=== PATIENT | male | born 1940 | race Caucasian/White ===

== ENCOUNTER 2017-12-22 06:55 | Inpatient (IN) | payer MEDICARE, SELFPAY ==
[2017-12-08 13:43] VITALS: BMI 34.8
[2017-12-22] VITALS (14 sets, daily range): BP systolic 105–144; BP diastolic 54–81; PULSE 69–104; RESP 14–17; TEMP 36.2–37.7; O2SAT 88–98; BMI 34.8
[2017-12-22] MEDS: LACTATED RINGERS 1,000 ML 42 ML IV ×3 (07:28→12:00)
--- NOTE | 2017-12-22 08:00 | DI.RAD.S_ITS ---
PROCEDURE: XR LUMBAR SPINE 2-3V INDICATIONS: L3-4, L4-5 L5-S1 TLIF TECHNIQUE: 3 views of the lumbar spine were acquired. [facility] 3 [facility], 09/10/2017, 9:39. FINDINGS: Bones: Intraoperative imaging of discectomy and posterior fusion at L3-4, L4-5 and L5-S1, disc spacers at those levels with bilateral transpedicular screws and vertical connecting rods. Soft tissues: Overlying bowel gas pattern is normal. No suspicious soft tissue calcifications. IMPRESSION: Intraoperative documentation of discectomy and fusion at 3 levels, L3-4 through L5-S1 Dictated by: Harry Salmon M.D. on 12/22/2017 at 13:16 Approved by: Harry Salmon M.D. on 12/22/2017 at 13:19
[2017-12-22] MEDS: CEFAZOLIN 2 GM/100 ML FROZ.PIGGY IV ×2 (08:02→17:12)
--- NOTE | 2017-12-22 09:24 | SUR.OPER ---
Prone on spine table, head in foam head support, padded chest and pelvic supports, gel pad at knees, lower legs supported by pillows; nipples, genitalia and toes free of pressure, arms secured on foam padded arm boards at <90 degrees abduction. Tape over blanket at thigh secured to table.
[2017-12-22] MEDS: BUPIVACAINE LIPOSOME 266 MG/20 ML VIAL SUBCUT (09:35)
[2017-12-22] MEDS: BUPIVACAINE 0.25% W/ EPI 50 ML VIAL INJ (09:35)
--- NOTE | 2017-12-22 12:50 | PM.OP.1 ---
Operative Date/Time/Diagnoses - Date of procedure: 12/22/17 Time of procedure: 08:34 Pre-op diagnosis: 1. L3-4, L4-5, L5-S1 spinal stenosis 2. L5-S1 spondylolisthesis 3. L3-4, L4-5, L5-S1 spondylosis with radiculopathy Post-op diagnosis: same Procedure & Clinicians Procedure: 1. L3-4, L4-5, L5-S1 Postero-lateral and posterior interbody fusion 2. L3-4, L4-5, L5-S1 interbody cage placement. 3. L3-4, L4-5, L5-S1 decompressive laminectomy with bilateral facetecomies 4. L3-4, L4-5, L5-S1 Posterior segmental instrumentation 5. Peterson of bone marrow from iliac crest 6. Utilization of microsurgical technique and operating microscope l Same procedure as scheduled: Yes Indications: Patient has been having chronic back pain and worsening lumbar radiculopathy. Patient failed multiple conservative management with worsening pain weakness and numbness in her lower extremity. Patient has been having difficulty performing activity of daily living. After discussing risks benefits of treatment options, patient elected proceed with surgery. Surgeon: Jas Feliciano Tourist Guide: Erika Tan Click Yes if Unassisted: No Anesthesia Type: General Operative Notes Closure Type: primary Specimen(s): none sent Applied: catheter Estimated Blood Loss (mL): 200 Blood products transfused: none Procedure in detail: Patient was seen in the preoperative area. Risks and benefits of the surgery was discussed with the patient. Informed consent was obtained from the patient and placed in the chart. Surgical site was marked. Patient was taken to the operative room. General anesthesia was administered. Prophylactic antibiotic was given to the patient less than 30 min before the incision was made. Patient was placed into a prone position on the Connor table. Patient's back was then prepped and draped in the sterile fashion. Time-out was performed at this time. Using AP and lateral C-arm imaging the interval between L3-S1 was identified and marked on patient's back. A 3 inch incision 2 in from midline was made on the left side first. The fascia was incised in line with skin incision. Globus MARS retractors was placed inside the incision and docked onto the L3, L4 and L5 lamina. Using microsurgical technique and operating microscope, a L3, L4 and L5 laminectomy and L3-4, L4-5 L5-S1 facetectomy was performed using a Kerrison rongeur. The disc space at L3-4, L4-5, L5-S1 was identified. And a total diskectomy was performed at L3-4, L4-5, L5-S1 level. The endplates were decorticated using a rasp and shaver. The total diskectomy and decortication was performed at L3-4, L4-5, L5-S1 level in order to to accomplish a L3-4, L4-5, L5-S1 fusion. The local bone from the laminectomy and facetectomy was saved for local bone grafting. After the total diskectomy and decortication was completed, Globus viacell bone graft material was combined with local bone that was harvested earlier. At this time, a separate skin is incision was made over the iliac crest. A Jamshidi needle was inserted into the iliac crest through a separate skin incision. 5 cc of bone marrow aspiration was obtained through the separate skin incision using a Jamshidi needle from the iliac crest. The bone marrow aspiration was combined with local bone and the via cell bone grafting material. The bone grafting material was placed into the L3-4, L4-5, L5-S1 interbody space along with three cages, one expandable cage at each level. The cages were expanded to their maximum height using the torque limiting screwdriver. At this time a mirror image incision was made on the right side. The fascia was incised in line with the skin incision. Globus MARS retractor was inserted and docked onto the L3-4, L4-5, L5-S1 posterolateral gutter. Using the power drill, posterior-lateral decortication was performed at L3-4, L4-5, L5-S1 level until bleeding cortical bone was identified. The remaining bone grafting material was placed into the L3-4, L4-5 L5-S1 posterior lateral gutter he order to accomplish posterolateral fusion at the L3-4, L4-5 L5-S1 levels. Using the double C-arm technique, pedicle screws were placed into the L3, L4, L5, S1 pedicles bilaterally. This was done by placing the Jamshidi needle into the pedicles, then placing the guidewires over the Jamshidi needle, and finally placing the cannulated screws over the guidewires bilaterally. After the pedicle screws were placed, 2 titanium rods was locked into the heads of the pedicle screws using locking caps and torque limiting screwdriver. Total 8 pedicles screws were placed. After all the hardware was placed, and confirmed with AP and lateral C-arm imaging, the wound was then irrigated with sterile normal saline and packed with Ray-Emily gauze for 3 min to accomplish hemostasis. After the gauze was removed the deep fascia was closed with #1 Vicryl suture. The subcutaneous layer was closed with 2-0 Vicryl. The skin was closed with skin rebeca. Patient tolerated the procedure well. There were no complications. Complications: none Condition: stable Disposition: PACU Plan for aftercare: Admit to inpatient hospital
--- NOTE | 2017-12-22 12:59 | P.OP_ITS ---
Operative Date/Time/Diagnoses - Date of procedure: 12/22/17 Time of procedure: 08:34 Pre-op diagnosis: 1. L3-4, L4-5, L5-S1 spinal stenosis 2. L5-S1 spondylolisthesis 3. L3-4, L4-5, L5-S1 spondylosis with radiculopathy Post-op diagnosis: same Procedure & Clinicians Procedure: 1. L3-4, L4-5, L5-S1 Postero-lateral and posterior interbody fusion 2. L3-4, L4-5, L5-S1 interbody cage placement. 3. L3-4, L4-5, L5-S1 decompressive laminectomy with bilateral facetecomies 4. L3-4, L4-5, L5-S1 Posterior segmental instrumentation 5. Prompton of bone marrow from iliac crest 6. Utilization of microsurgical technique and operating microscope l Same procedure as scheduled: Yes Indications: Patient has been having chronic back pain and worsening lumbar radiculopathy. Patient failed multiple conservative management with worsening pain weakness and numbness in her lower extremity. Patient has been having difficulty performing activity of daily living. After discussing risks benefits of treatment options, patient elected proceed with surgery. Surgeon: Jas Feliciano Title Supervisor: Erika Tan Click Yes if Unassisted: No Anesthesia Type: General Operative Notes Closure Type: primary Specimen(s): none sent Applied: catheter Estimated Blood Loss (mL): 200 Blood products transfused: none Procedure in detail: Patient was seen in the preoperative area. Risks and benefits of the surgery was discussed with the patient. Informed consent was obtained from the patient and placed in the chart. Surgical site was marked. Patient was taken to the operative room. General anesthesia was administered. Prophylactic antibiotic was given to the patient less than 30 min before the incision was made. Patient was placed into a prone position on the Connor table. Patient's back was then prepped and draped in the sterile fashion. Time- out was performed at this time. Using AP and lateral C-arm imaging the interval between L3-S1 was identified and marked on patient's back. A 3 inch incision 2 in from midline was made on the left side first. The fascia was incised in line with skin incision. Globus MARS retractors was placed inside the incision and docked onto the L3, L4 and L5 lamina. Using microsurgical technique and operating microscope, a L3, L4 and L5 laminectomy and L3-4, L4-5 L5-S1 facetectomy was performed using a Kerrison rongeur. The disc space at L3-4, L4-5, L5-S1 was identified. And a total diskectomy was performed at L3-4, L4-5, L5-S1 level. The endplates were decorticated using a rasp and shaver. The total diskectomy and decortication was performed at L3-4, L4-5, L5-S1 level in order to to accomplish a L3-4, L4-5 , L5-S1 fusion. The local bone from the laminectomy and facetectomy was saved for local bone grafting. After the total diskectomy and decortication was completed, Globus viacell bone graft material was combined with local bone that was harvested earlier. At this time, a separate skin is incision was made over the iliac crest. A Jamshidi needle was inserted into the iliac crest through a separate skin incision. 5 cc of bone marrow aspiration was obtained through the separate skin incision using a Jamshidi needle from the iliac crest. The bone marrow aspiration was combined with local bone and the via cell bone grafting material. The bone grafting material was placed into the L3-4, L4-5, L5-S1 interbody space along with three cages, one expandable cage at each level. The cages were expanded to their maximum height using the torque limiting screwdriver. At this time a mirror image incision was made on the right side. The fascia was incised in line with the skin incision. Globus MARS retractor was inserted and docked onto the L3-4, L4-5, L5-S1 posterolateral gutter. Using the power drill , posterior-lateral decortication was performed at L3-4, L4-5, L5-S1 level until bleeding cortical bone was identified. The remaining bone grafting material was placed into the L3-4, L4-5 L5-S1 posterior lateral gutter he order to accomplish posterolateral fusion at the L3-4, L4-5 L5-S1 levels. Using the double C-arm technique, pedicle screws were placed into the L3, L4, L5 , S1 pedicles bilaterally. This was done by placing the Jamshidi needle into the pedicles, then placing the guidewires over the Jamshidi needle, and finally placing the cannulated screws over the guidewires bilaterally. After the pedicle screws were placed, 2 titanium rods was locked into the heads of the pedicle screws using locking caps and torque limiting screwdriver. Total 8 pedicles screws were placed. After all the hardware was placed, and confirmed with AP and lateral C-arm imaging, the wound was then irrigated with sterile normal saline and packed with Ray-Emily gauze for 3 min to accomplish hemostasis. After the gauze was removed the deep fascia was closed with #1 Vicryl suture. The subcutaneous layer was closed with 2-0 Vicryl. The skin was closed with skin rebeca. Patient tolerated the procedure well. There were no complications. Complications: none Condition: stable Disposition: PACU Plan for aftercare: Admit to inpatient hospital
[2017-12-22] MEDS: fentaNYL 100 MCG/2 ML INJ 50 MCG IV ×4 (13:16→13:47)
[2017-12-22] MEDS: SODIUM CHLORIDE 0.9% 1,000 ML 100 ML IV (14:38)
[2017-12-22] MEDS: HYDROMORPHONE 0.5 MG INJ IV (14:55)
[2017-12-22] MEDS: GABAPENTIN 600 MG TABLET PO ×2 (15:00→20:45)
[2017-12-22] MEDS: OXYCODONE IR 10 MG TABLET PO ×3 (16:18→22:32)
[2017-12-22] MEDS: DOCUSATE 100 MG CAPSULE PO (20:45)
[2017-12-22] MEDS: SENNOSIDES 8.6 MG TABLET 17.2 MG PO (20:47)
[2017-12-22] MEDS: hydrOXYzine pamoate 25 MG CAPSULE PO (20:48)
[2017-12-23] VITALS (7 sets, daily range): BP systolic 116–157; BP diastolic 58–76; PULSE 81–116; RESP 16–22; TEMP 36.4–37.4; O2SAT 93–97
[2017-12-23] MEDS: CEFAZOLIN 2 GM/100 ML FROZ.PIGGY IV (00:27)
[2017-12-23] MEDS: SODIUM CHLORIDE 0.9% 1,000 ML 100 ML IV (00:29)
[2017-12-23] MEDS: HYDROMORPHONE 0.5 MG INJ IV ×4 (00:47→15:38)
[2017-12-23] MEDS: hydrOXYzine pamoate 25 MG CAPSULE PO ×5 (02:42→21:21)
[2017-12-23] MEDS: OXYCODONE IR 10 MG TABLET PO ×7 (02:42→21:20)
[2017-12-23 05:51] LABS: Hematocrit 32.2 % (41-53); Hemoglobin 10.8 g/dL (13.5-17.5)
--- NOTE | 2017-12-23 07:30 | P.PN_ITS ---
Subjective Date Patient Seen: 12/23/17 Time Patient Seen: 07:30 Interval history: Patient is s/p L3-4, L4-5, L5-S1 fusion POD #1. He states that his back is still causing him some pain locally but is better down his legs. He complains of numbness of the left great toe and down his right thigh that was pre-existing prior to surgery. Denies fevers, chills, SOB, CP. Exam Vital Signs (past 8 hours): Vital Signs - 8 hr 3 12/22/17 23:30 12/23/17 03:10 Temperature 98.2 F 97.6 F Pulse Rate 85 81 Respiratory Rate 17 Blood Pressure 120/54 L 139/76 H Pulse Oximetry 95 95 Pulse Oximetry 95 Oxygen Delivery Method Room Air Oxygen Flow Rate 0 Narrative Exam Narrative: Patient is well-developed, well-nourished, in no acute distress. Patient is alert and oriented x3. He has no focal neurological deficits observed and is making urine, but output is low. He is NVI in both lower extremities, has full movement of the ankle and knees. Dressing CDI. Objective Labs Result Diagrams: 12/23/17 05:30 Labs: Laboratory Results - last 24 hr 12/23/17 05:30 Hgb 10.8 L Hct 32.2 L Urine output around 1 mL/hr Assessment & Plan Post-op (1) Lumbar spondylosis: Problem details: Patient will work with physical therapy today. Continue pain control and DVT prophylaxis. Bolus 1 L to help alleviate fluid imbalance. Recheck H&H in the morning. Possible discharge home tomorrow. Current Visit: Yes Status: Acute Postoperative Procedures Operation Date: 12/22/17 07:45 Actual Procedures Side Surgeon p L3-4, L4-5, L5-S1 Translaminar Interbody Fusion with Posterior Instru Jas Feliciano MD Postoperative day: 1 Postoperative status: doing well Postoperative plan: routine post-op care, see orders and advance diet Time Spent With Patient less than 15 minutes Quality VTE Deep Vein Thrombosis/Pulmonary Embolism Present on Admission: No
[2017-12-23] MEDS: SODIUM CHLORIDE 0.9% 500 ML 1000 ML IV (07:53)
[2017-12-23] MEDS: LISINOPRIL 20 MG TABLET 10 MG PO (08:03)
[2017-12-23] MEDS: TAMSULOSIN 0.4 MG CAPSULE PO (08:03)
[2017-12-23] MEDS: GABAPENTIN 600 MG TABLET PO ×3 (08:04→21:22)
[2017-12-23] MEDS: DOCUSATE 100 MG CAPSULE PO ×2 (08:04→21:20)
[2017-12-23] MEDS: PANTOPRAZOLE 20 MG TABLET PO (08:04)
[2017-12-23] MEDS: ACETAMINOPHEN 325 MG TABLET 650 MG PO (09:17)
[2017-12-23] MEDS: ASPIRIN EC 81 MG TABLET PO (10:04)
--- NOTE | 2017-12-23 10:36 | CM.DANOTE ---
Addendum entered by DEANA Melendez 12/23/17 13:26: According to PT/OT; SNF is recommended and pt/spouse agreeable. Went back to pt's rm to review SNF choice options- pt groggy but appreciates SNF choice list and will review w/spouse. Original Note: DCP Assessment: Pt is a 77 yo male, resident of [place]. Pt admitted for spinal surgery w/Dr Feliciano. Pt's PCP is RUY Gonzalez. Insurance is Medicare. Met w/pt and his Eliana, explained SW role. Heena, MARILEE and Audrey PT were beginning their evals in pt's rm. Pt and spouse live in a [id number] suite on the same property as pt's son. Pt has no DPOA assigned at this time although would like his to be his primary contact. Pt expects to return home at [place] w/the assistance from his and outpt f/u. OT Heena mentions briefly SNF as a b/u plan and pt apprehensive about this idea. Pt mostly indp at baseline although pain has limited his activity tolerance and endurance. This TROUBLE LOCATER will plan to f/u w/therapy team later today or tomorrow re initial eval; thoughts/concerns/recommendations etc. DEANA Melendez
--- NOTE | 2017-12-23 11:41 | PC.NURSE ---
Discussed removing peterson catheter with patient, as order remains to dc once urinary output increases and patient ambulating. Patient was unable to ambulate with PT and OT this morning, per PT patient will require lift back to bed from chair. Patient refused removal at this time. will continue to monitor and dc once patient able to ambulate and tolerate removal.
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
--- NOTE | 2017-12-23 15:14 | PT.IPTN ---
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/17) Spinal stenosis, lumbar region with neurogenic claudication (12/22/17) Surgery Performed Operation Date: 12/22/17 07:45 Actual Procedures p L3-4, L4-5, L5-S1 Translaminar Interbody Fusion with Posterior Gilberto Feliciano MD Physical Therapy Treatment Note M2 PT-IP Current Condition Start: 12/23/17 12:03 Freq: NEEDED Status: Active Protocol: Document 12/23/17 12:05 AB (Rec: 12/23/17 12:23 AB [id number]) Physical Therapy Current Condition Current Condition Evaluation Date 12/23/17 Treatment Diagnosis s/p L3-4, L4-5, L5S1 fusion and discectomy Onset Date 12/22/17 Precautions Lumbar Precautions Log Roll No Twisting Limit Bending Lifting Restriction of 10 lbs Gait Belt above Incisional Area M3 PT-IP Subjective Start: 12/23/17 12:03 Freq: NEEDED Status: Active Protocol: Document 12/23/17 15:09 AB (Rec: 12/23/17 15:14 AB [id number]) Subjective Physical Therapy Visit Type Type Treatment Note Visit Start Time 12:30 Visit Stop Time 13:00 Total Visit Minutes 30 Number of TRAIN BRAKE OPERATOR Visits 0 Physical Therapy Visit Comments Patient Comments pt requesting to go back to bed. Therapy Pain Assessment Pain When Pain Assessed At Rest Pain Present Pain Present Pain Reported Location Lower Back Intensity 5 Scale Used Numeric (1 - 10) Pain Management Techniques Re-positioning M4 PT-IP Mobility and Gait Start: 12/23/17 12:03 Freq: NEEDED Status: Active Protocol: Document 12/23/17 15:09 AB (Rec: 12/23/17 15:14 AB [id number]) PT-Bed Mobility Assessment Sit to Supine Sit to Supine Maximum Assistance 2 Person Assistance PT-Transfer Assessment Sit to and From Stand Sit to and from Stand Maximum Assistance 2 Person Assistance Use of Upper Extremities Equipment Transfer Assistive Device Gait Belt Front Wheeled Walker Orthotic/Prosthetic Devices or Brace: No Transfers Transfer Destination Bed Transfer Technique Stand Step Pivot Transfer Ability Level of Assist Maximum Assistance 2 Person Assistance Use of Upper Extremities Comments Mobility Comments pt completed sit <> stand with 2 attempts requiring max A x 2-3. pt completed transfer to bed using FWW max A x 2 and max cues. pt required max A to stabilize L knee and for balance. M5 PT-IP Objective Assessments Start: 12/23/17 12:03 Freq: NEEDED Status: Active Protocol: Document 12/23/17 12:05 AB (Rec: 12/23/17 12:23 AB [id number]) Orientation Orientation/Cognition Level of Alertness Alert Orientation Name Place Situation Safety Awareness Understands Safety Issues Strength Lower Extremity Strength Assessment Bilaterally Impaired Comments Strength Comments LLE: 3-/5 RLE 3+/5 M6 PT-IP Treatment Start: 12/23/17 12:03 Freq: NEEDED Status: Active Protocol: Document 12/23/17 12:05 AB (Rec: 12/23/17 12:23 AB [id number]) Physical Therapy Treatment Exercises Exercises Ankle Pumps Gluteal Sets Quad Sets Education Education Provided Precautions Weight Bearing Status Post-Op Packet Safety M7 PT-IP Assessment and Plan Start: 12/23/17 12:03 Freq: NEEDED Status: Active Protocol: Document 12/23/17 15:09 AB (Rec: 12/23/17 15:14 AB [id number]) PT Summary Assessment and Plan Potential Rehabilitation Potential Fair Summary Impairments Pain ROM Strength Balance Coordination Bed Mobility Transfers Gait Activity Tolerance Progress Towards Goals Slow Progress due to Medical Issues Slow Progress due to Activity Tolerance Assessment Summary pt continues to require 2 -3 person extensive assist with mobility and unable to ambulate at this time. Pt will need SNF rehab to improve function prior to d/c home. Goals Bed Mobility Goal Minimal Assistance Transfer Goal Minimal Assistance Gait Goal Minimal Assistance Gait Distance 100 Other Goals up/down 1 step using FWW Frequency of Treatment Frequency Of Treatment Twice a Day Treatment Plan Physical Therapy Treatment Plan Bed Mobility Training Transfer Training Gait Training Therapeutic Exercise Balance Retraining Post Op Education Discharge Planning Hot or Cold Pack Neuromuscular Re-ed Coordination Retraining Manual Therapy Other Recommendations and Next Treatment sit<> stand; bed mobility, Focus transfers Recommendations To Nursing Amount of Assist Needed 3 or More Person Assist Mechanical Lift Discharge Recommendations PT Discharge Recommendations SNF Rehab Equipment Needed for Home Before FWW Discharge
[2017-12-23] MEDS: SENNOSIDES 8.6 MG TABLET 17.2 MG PO (21:20)
[2017-12-23] MEDS: SODIUM CHLORIDE 0.9% FLUSH 10 ML IV (21:22)
[2017-12-24] VITALS (10 sets, daily range): BP systolic 112–143; BP diastolic 60–80; PULSE 78–105; RESP 16–18; TEMP 36.3–36.7; O2SAT 86–98
[2017-12-24] MEDS: HYDROMORPHONE 0.5 MG INJ IV ×2 (00:20→06:10)
[2017-12-24] MEDS: OXYCODONE IR 5 MG TABLET 15 MG PO ×3 (01:55→19:19)
--- NOTE | 2017-12-24 02:21 | PC.NURSE ---
Addendum entered by Tristan Berry R.N. 12/24/17 02:33: 0155: Pt states his pain is still 5/10. Medicated for pain with Oxycodone 15mg po. Original Note: Slate Cutter Note: 0020: Pt having labored breathing and O2 sat of 86% on room air. RR 28. Pt states he has 8/10 pain. HR 116. Placed on O2 2L/NC. Medicated with Dilaudid 0.5mg IV. 0025: Dr. Feliciano notified by phone of the above. New orders are to increase Oxycodone dose, add Valium as muscle relaxer, keep pt on O2 for now and monitor sats Q1hr through the night. 0030: Pt states he is starting to feel better, and pain is decreased to 5/10.
[2017-12-24] MEDS: hydrOXYzine pamoate 25 MG CAPSULE PO ×2 (04:57→16:17)
--- NOTE | 2017-12-24 08:11 | PM.PNPO.1 ---
Subjective Date Patient Seen: 12/24/17 Time Patient Seen: 08:11 Interval history: POD #2 status post L3-S1 fusion with Dr. Feliciano. Had difficulty with pain control yesterday afternoon through this morning. He is taking oxycodone 15 mg, and Tylenol for pain control. Still has a Peck in place as he was not very mobile yesterday and only made it to his chair in his room. Exam Vital Signs (past 8 hours): Vital Signs - 8 hr 12/24/17 00:20 12/24/17 00:25 12/24/17 00:30 Temperature Pulse Rate Respiratory Rate Blood Pressure Pulse Oximetry 86 L 90 L 92 12/24/17 01:30 12/24/17 05:34 Temperature 98.0 F Pulse Rate 78 Respiratory Rate 18 Blood Pressure 132/74 H Pulse Oximetry 98 94 Pulse Oximetry 94 Oxygen Delivery Method Nasal Cannula Oxygen Flow Rate 2 Narrative Exam Narrative: Patient lying in bed in no acute distress. He is alert and oriented x3. Calves are soft, compressible, nontender bilaterally. Sensation intact to light touch throughout bilateral lower extremities. Pulses are symmetrical. He is able to actively dorsiflex and plantar flex. Objective Labs Result Diagrams: 12/23/17 05:30 Assessment & Plan Post-op (1) History of [place] (myocardial infarction): Current Visit: Yes Status: Acute (2) Prostate cancer: Current Visit: Yes Status: Acute (3) S/P lumbar fusion: Current Visit: Yes Status: Acute Postoperative Procedures Operation Date: 12/22/17 07:45 Actual Procedures Side Surgeon p L3-4, L4-5, L5-S1 Translaminar Interbody Fusion with Posterior Instru Jas Feliciano MD POD #2 status post L3-S1 fusion with Dr[address] Feliciano. Will start course of 24 hr burst of steroids; 10 mg dexamethasone now, then 4 mg every 6 hr for 24 hr. Patient will continue to mobilize with physical therapy. No excessive bending, lifting, or twisting. Peck will remain in place until patient is more active, as he has a history of prostate cancer. Patient is slow to recover, and having difficulty with pain control. Possible SNF versus home in next 1-2 days. Time Spent With Patient less than 15 minutes Quality VTE Deep Vein Thrombosis/Pulmonary Embolism Present on Admission: No
--- NOTE | 2017-12-24 08:14 | P.PN_ITS ---
Subjective Date Patient Seen: 12/24/17 Time Patient Seen: 08:11 Interval history: POD #2 status post L3-S1 fusion with Dr. Feliciano. Had difficulty with pain control yesterday afternoon through this morning. He is taking oxycodone 15 mg, and Tylenol for pain control. Still has a Peck in place as he was not very mobile yesterday and only made it to his chair in his room. Exam Vital Signs (past 8 hours): Vital Signs - 8 hr 3 12/24/17 00:20 12/24/17 00:25 12/24/17 00:30 Temperature Pulse Rate Respiratory Rate Blood Pressure Pulse Oximetry 86 L 90 L 92 3 12/24/17 01:30 12/24/17 05:34 Temperature 98.0 F Pulse Rate 78 Respiratory Rate 18 Blood Pressure 132/74 H Pulse Oximetry 98 94 Pulse Oximetry 94 Oxygen Delivery Method Nasal Cannula Oxygen Flow Rate 2 Narrative Exam Narrative: Patient lying in bed in no acute distress. He is alert and oriented x3. Calves are soft, compressible, nontender bilaterally. Sensation intact to light touch throughout bilateral lower extremities. Pulses are symmetrical. He is able to actively dorsiflex and plantar flex. Objective Labs Result Diagrams: 12/23/17 05:30 Assessment & Plan Post-op (1) History of [place] (myocardial infarction): Current Visit: Yes Status: Acute (2) Prostate cancer: Current Visit: Yes Status: Acute (3) S/P lumbar fusion: Current Visit: Yes Status: Acute Postoperative Procedures Operation Date: 12/22/17 07:45 Actual Procedures Side Surgeon p L3-4, L4-5, L5-S1 Translaminar Interbody Fusion with Posterior Instru Jas Feliciano MD POD #2 status post L3-S1 fusion [address] Feliciano. Will start course of 24 hr burst of steroids; 10 mg dexamethasone now, then 4 mg every 6 hr for 24 hr. Patient will continue to mobilize with physical therapy. No excessive bending, lifting , or twisting. Peck will remain in place until patient is more active, as he has a history of prostate cancer. Patient is slow to recover, and having difficulty with pain control. Possible SNF versus home in next 1-2 days. Time Spent With Patient less than 15 minutes Quality VTE Deep Vein Thrombosis/Pulmonary Embolism Present on Admission: No
[2017-12-24] MEDS: GABAPENTIN 600 MG TABLET PO ×3 (08:33→20:37)
[2017-12-24] MEDS: ASPIRIN EC 81 MG TABLET PO (08:33)
[2017-12-24] MEDS: DOCUSATE 100 MG CAPSULE PO ×2 (08:33→20:37)
[2017-12-24] MEDS: ACETAMINOPHEN 325 MG TABLET 650 MG PO ×2 (08:33→20:43)
[2017-12-24] MEDS: TAMSULOSIN 0.4 MG CAPSULE PO (08:33)
[2017-12-24] MEDS: SODIUM CHLORIDE 0.9% FLUSH 10 ML IV ×3 (08:34→20:37)
[2017-12-24] MEDS: DEXAMETHASONE 4 MG TABLET 10 MG PO (08:34)
[2017-12-24] MEDS: LISINOPRIL 10 MG TABLET PO (08:34)
[2017-12-24] MEDS: PANTOPRAZOLE 20 MG TABLET PO (08:34)
[2017-12-24] MEDS: OXYCODONE IR 10 MG TABLET PO ×3 (10:23→16:16)
--- NOTE | 2017-12-24 10:59 | CM.DPC ---
DCP Cont: Spoke w/spouse Eliana this morning; reviewed Medicare SNF list; Pt fairly groggy this morning. Eliana expects to visit [facility] today and will keep this CUP MACHINE OPERATOR posted re SNF choice. DALLIN
--- NOTE | 2017-12-24 12:06 | PT.IPTN ---
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/17) Spinal stenosis, lumbar region with neurogenic claudication (12/22/17) Arthrodesis status (12/22/17) Surgery Performed Operation Date: 12/22/17 07:45 Actual Procedures p L3-4, L4-5, L5-S1 Translaminar Interbody Fusion with Posterior Gilberto Feliciano MD Physical Therapy Treatment Note M2 PT-IP Current Condition Start: 12/23/17 12:03 Freq: NEEDED Status: Active Protocol: Document 12/23/17 12:05 AB (Rec: 12/23/17 12:23 AB [id number]) Physical Therapy Current Condition Current Condition Evaluation Date 12/23/17 Treatment Diagnosis s/p L3-4, L4-5, L5S1 fusion and discectomy Onset Date 12/22/17 Precautions Lumbar Precautions Log Roll No Twisting Limit Bending Lifting Restriction of 10 lbs Gait Belt above Incisional Area M3 PT-IP Subjective Start: 12/23/17 12:03 Freq: NEEDED Status: Active Protocol: Document 12/24/17 11:58 AB (Rec: 12/24/17 12:06 AB [email or web address]) Subjective Physical Therapy Visit Type Type Treatment Note Visit Start Time 10:44 Visit Stop Time 11:10 Total Visit Minutes 26 Number of FLIGHT CONTROLS ENGINEER Visits 0 Physical Therapy Visit Comments Patient Comments pt requires motivation to participate and initially refusing PT. Therapy Pain Assessment Pain When Pain Assessed During Mobility Pain Present Pain Present Pain Reported Location Lower Back Intensity 4 Scale Used Numeric (1 - 10) Pain Management Techniques Timing of Activity with Medications M4 PT-IP Mobility and Gait Start: 12/23/17 12:03 Freq: NEEDED Status: Active Protocol: Document 12/24/17 11:58 AB (Rec: 12/24/17 12:06 AB [email or web address]) PT-Bed Mobility Assessment Rolling Type of Rolling Roll to Left Level of Assist Maximal Assistance Supine to Sit Supine to Sit Maximum Assistance 1 Person Assistance 2 Person Assistance PT-Transfer Assessment Sit to and From Stand Sit to and from Stand Maximum Assistance 2 Person Assistance Use of Upper Extremities Equipment Transfer Assistive Device Gait Belt Front Wheeled Walker Transfers Transfer Destination Chair Transfer Technique Stand Step Pivot Transfer Ability Level of Assist Maximum Assistance 2 Person Assistance Use of Upper Extremities Comments Mobility Comments pt with 2 attempts with sit to stand requiring max A x 2 and max cues. pt continues to have L knee buckling during transfers. Gait Assessment Comments Gait Comments unable to ambulate at this time with L knee buckling M5 PT-IP Objective Assessments Start: 12/23/17 12:03 Freq: NEEDED Status: Active Protocol: Document 12/23/17 12:05 AB (Rec: 12/23/17 12:23 AB [id number]) Orientation Orientation/Cognition Level of Alertness Alert Orientation Name Place Situation Safety Awareness Understands Safety Issues Strength Lower Extremity Strength Assessment Bilaterally Impaired Comments Strength Comments LLE: 3-/5 RLE 3+/5 M6 PT-IP Treatment Start: 12/23/17 12:03 Freq: NEEDED Status: Active Protocol: Document 12/24/17 11:58 AB (Rec: 12/24/17 12:06 AB [email or web address]) Physical Therapy Treatment Exercises Exercises Heel Slides Short Arc Quads Education Education Provided Precautions Weight Bearing Status Post-Op Packet Safety M7 PT-IP Assessment and Plan Start: 12/23/17 12:03 Freq: NEEDED Status: Active Protocol: Document 12/24/17 11:58 AB (Rec: 12/24/17 12:06 AB [email or web address]) PT Summary Assessment and Plan Potential Rehabilitation Potential Fair Summary Impairments Pain ROM Strength Balance Cognition Bed Mobility Transfers Gait Activity Tolerance Progress Towards Goals Slow Progress - Other Assessment Summary pt continues to require 2 person assist with mobility with L knee buckling during transfers. pt with BLE weakness and overall deconditioned affecting mobility. pt will need SNF rehab to improve strength and function. Goals Bed Mobility Goal Minimal Assistance Transfer Goal Minimal Assistance Gait Goal Minimal Assistance Gait Distance 100 Other Goals up/down 1 step using FWW Days to Meet Goals 3 Frequency of Treatment Frequency Of Treatment Twice a Day Treatment Plan Physical Therapy Treatment Plan Bed Mobility Training Transfer Training Gait Training Therapeutic Exercise Balance Retraining Post Op Education Discharge Planning Hot or Cold Pack Neuromuscular Re-ed Coordination Retraining Manual Therapy Other Recommendations and Next Treatment sit<> stand; bed mobility, Focus transfers Recommendations To Nursing Amount of Assist Needed 3 or More Person Assist Mechanical Lift Discharge Recommendations PT Discharge Recommendations SNF Rehab Equipment Needed for Home Before FWW Discharge
[2017-12-24] MEDS: DEXAMETHASONE 4 MG TABLET PO ×2 (13:28→18:04)
--- NOTE | 2017-12-24 14:50 | OT.IP.TRT ---
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/17) Spinal stenosis, lumbar region with neurogenic claudication (12/22/17) Arthrodesis status (12/22/17) Surgery Performed Operation Date: 12/22/17 07:45 Actual Procedures p L3-4, L4-5, L5-S1 Translaminar Interbody Fusion with Posterior Gilberto Feliciano MD Occupational Therapy Treatment Note M2 OT-IP Current Condition Start: 12/23/17 12:10 Freq: Status: Active Protocol: Document 12/23/17 09:55 CCC (Rec: 12/23/17 12:29 CCC [email or web address]) Occupational Therapy Current Condition Current Condition Evaluation Date 12/23/17 Treatment Diagnosis Spinal stenosis Post Operative Precautions Lumbar Precautions Log Roll No Twisting Limit Bending Lifting Restriction of 10 lbs Gait Belt above Incisional Area M3 OT- IP Subjective and Pain Start: 12/23/17 12:10 Freq: Status: Active Protocol: Document 12/24/17 14:49 CCC (Rec: 12/24/17 14:50 CCC [email or web address]) OT- Subjective Occupational Therapy Visit Type Type Patient Unavailable Notes Pt just finished working with physical therapy and asleep therefore unable to do OT treatment today, to check on pt on the morning.
--- NOTE | 2017-12-24 15:46 | PT.IPTN ---
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/17) Spinal stenosis, lumbar region with neurogenic claudication (12/22/17) Arthrodesis status (12/22/17) Surgery Performed Operation Date: 12/22/17 07:45 Actual Procedures p L3-4, L4-5, L5-S1 Translaminar Interbody Fusion with Posterior Gilberto Feliciano MD Physical Therapy Treatment Note M2 PT-IP Current Condition Start: 12/23/17 12:03 Freq: NEEDED Status: Active Protocol: Document 12/23/17 12:05 AB (Rec: 12/23/17 12:23 AB [id number]) Physical Therapy Current Condition Current Condition Evaluation Date 12/23/17 Treatment Diagnosis s/p L3-4, L4-5, L5S1 fusion and discectomy Onset Date 12/22/17 Precautions Lumbar Precautions Log Roll No Twisting Limit Bending Lifting Restriction of 10 lbs Gait Belt above Incisional Area M3 PT-IP Subjective Start: 12/23/17 12:03 Freq: NEEDED Status: Active Protocol: Document 12/24/17 15:37 AB (Rec: 12/24/17 15:46 AB [id number]) Subjective Physical Therapy Visit Type Type Treatment Note Visit Start Time 14:02 Visit Stop Time 14:20 Total Visit Minutes 18 Number of K 9 HANDLER/ DEPUTY Visits 0 Physical Therapy Visit Comments Patient Comments pt requested to go back to the bed Therapy Pain Assessment Pain When Pain Assessed During Mobility Pain Present Pain Present Pain Reported Location Lower Back Intensity 5 Scale Used Numeric (1 - 10) M4 PT-IP Mobility and Gait Start: 12/23/17 12:03 Freq: NEEDED Status: Active Protocol: Document 12/24/17 15:37 AB (Rec: 12/24/17 15:46 AB [id number]) PT-Bed Mobility Assessment Sit to Supine Sit to Supine Maximum Assistance 2 Person Assistance PT-Transfer Assessment Sit to and From Stand Sit to and from Stand Maximum Assistance 2 Person Assistance Equipment Transfer Assistive Device Gait Belt Front Wheeled Walker Orthotic/Prosthetic Devices or Brace: No Transfers Transfer Destination Bed Transfer Technique Stand Step Pivot Transfer Ability Level of Assist Maximum Assistance 2 Person Assistance Use of Upper Extremities Comments Mobility Comments pt requires max A x 2 with transfers using FWW. L knee continues to buckle requiring assist to stabilize. Gait Assessment Gait Gait Assistance Required: Maximum Assistance 2 Person Assist Distance (Feet) (feet) 3 Assistive Devices Assistive Device Gait Belt Front Wheeled Walker Orthotic/Prosthetic Devices or Brace: No Gait Deviations General Gait Pattern Antalgic Factors Limiting Gait Function Factors Limiting Gait Function Decreased Activity Tolerance Decreased Strength Difficulty Following Directions Pain Poor Balance Poor Safety Awareness Comments Gait Comments pt is impulsive and requires repeated cues for safety M5 PT-IP Objective Assessments Start: 12/23/17 12:03 Freq: NEEDED Status: Active Protocol: Document 12/23/17 12:05 AB (Rec: 12/23/17 12:23 AB [id number]) Orientation Orientation/Cognition Level of Alertness Alert Orientation Name Place Situation Safety Awareness Understands Safety Issues Strength Lower Extremity Strength Assessment Bilaterally Impaired Comments Strength Comments LLE: 3-/5 RLE 3+/5 M6 PT-IP Treatment Start: 12/23/17 12:03 Freq: NEEDED Status: Active Protocol: Document 12/24/17 11:58 AB (Rec: 12/24/17 12:06 AB [email or web address]) Physical Therapy Treatment Exercises Exercises Heel Slides Short Arc Quads Education Education Provided Precautions Weight Bearing Status Post-Op Packet Safety M7 PT-IP Assessment and Plan Start: 12/23/17 12:03 Freq: NEEDED Status: Active Protocol: Document 12/24/17 15:37 AB (Rec: 12/24/17 15:46 AB [id number]) PT Summary Assessment and Plan Potential Rehabilitation Potential Fair Summary Impairments Pain ROM Strength Balance Coordination Sensation Tone Cognition Bed Mobility Transfers Gait Activity Tolerance Progress Towards Goals Slow Progress due to Activity Tolerance Assessment Summary pt continues to require 2 person extensive assist with mobility and will need SNF rehab to improve function. Goals Bed Mobility Goal Minimal Assistance Transfer Goal Minimal Assistance Gait Goal Minimal Assistance Gait Distance 100 Other Goals up/down 1 step using FWW Days to Meet Goals 3 Frequency of Treatment Frequency Of Treatment Twice a Day Treatment Plan Physical Therapy Treatment Plan Bed Mobility Training Transfer Training Gait Training Therapeutic Exercise Balance Retraining Post Op Education Discharge Planning Hot or Cold Pack Neuromuscular Re-ed Coordination Retraining Manual Therapy Recommendations To Nursing Amount of Assist Needed 3 or More Person Assist Mechanical Lift Discharge Recommendations PT Discharge Recommendations SNF Rehab Equipment Needed for Home Before FWW Discharge
[2017-12-24] MEDS: SENNOSIDES 8.6 MG TABLET 17.2 MG PO (20:37)
[2017-12-24] MEDS: diazePAM 5 MG TABLET PO (20:43)
[2017-12-25 00:23] VITALS: BP 120/70; PULSE 84; RESP 17; TEMP 36.6; O2SAT 97
[2017-12-25] MEDS: OXYCODONE IR 5 MG TABLET 15 MG PO ×6 (00:50→20:32)
[2017-12-25] MEDS: DEXAMETHASONE 4 MG TABLET PO ×4 (00:51→17:24)
[2017-12-25] MEDS: SODIUM CHLORIDE 0.9% FLUSH 10 ML IV ×3 (00:55→20:32)
[2017-12-25 03:39] VITALS: BP 129/85; PULSE 82; RESP 16; TEMP 36.7; O2SAT 96
[2017-12-25] MEDS: hydrOXYzine pamoate 25 MG CAPSULE PO ×2 (05:40→17:27)
[2017-12-25] MEDS: DOCUSATE 100 MG CAPSULE PO ×2 (08:39→20:31)
[2017-12-25] MEDS: ASPIRIN EC 81 MG TABLET PO (08:39)
[2017-12-25] MEDS: LISINOPRIL 10 MG TABLET PO (08:39)
[2017-12-25] MEDS: GABAPENTIN 600 MG TABLET PO ×3 (08:39→20:32)
[2017-12-25] MEDS: PANTOPRAZOLE 20 MG TABLET PO (08:40)
[2017-12-25] MEDS: TAMSULOSIN 0.4 MG CAPSULE PO (08:40)
--- NOTE | 2017-12-25 09:50 | PM.PNPO.1 ---
Subjective Date Patient Seen: 12/25/17 Time Patient Seen: 09:51 Interval history: POD #3 status post L3-S1 fusion with Dr. Feliciano. His pain control is much better today. Still has a Peck in place as he was not very mobile yesterday and only made it to his chair in his room. Patient is very motivated today. He would like to discharge home instead of SNF. Family is getting their house set up today for his care at home. Denies any chest pain, shortness of breath, or nausea. Exam Vital Signs (past 8 hours): Vital Signs - 8 hr 12/25/17 03:39 Temperature 98.0 F Pulse Rate 82 Respiratory Rate 16 Blood Pressure 129/85 H Pulse Oximetry 96 Pulse Oximetry 96 Oxygen Delivery Method Room Air Oxygen Flow Rate 0 Narrative Exam Narrative: Patient lying in bed in no acute distress. He is alert and oriented x3. Sensation intact to light touch throughout bilateral lower extremities. He is able to actively dorsiflex and plantar flex. Calves are soft, compressible, and nontender bilaterally. Objective Labs Result Diagrams: 12/23/17 05:30 Assessment & Plan Post-op (1) S/P lumbar fusion: Current Visit: Yes Status: Acute (2) Prostate cancer: Current Visit: Yes Status: Acute (3) History of [place] (myocardial infarction): Current Visit: Yes Status: Acute Postoperative Procedures Operation Date: 12/22/17 07:45 Actual Procedures Side Surgeon p L3-4, L4-5, L5-S1 Translaminar Interbody Fusion with Posterior Instru Jas Feliciano MD POD #3 status post L3-S1 fusion [address] Feliciano. Continue current pain management. Patient will need meds for home. DC Peck today as he is more mobile than he has been. Plan will be to work with physical therapy today with a goal to ambulating in the [place]. Discharge likely tomorrow once mobilizing safely, and adequate pain control. Time Spent With Patient less than 15 minutes Quality VTE Deep Vein Thrombosis/Pulmonary Embolism Present on Admission: No
--- NOTE | 2017-12-25 09:56 | P.PN_ITS ---
Subjective Date Patient Seen: 12/25/17 Time Patient Seen: 09:51 Interval history: POD #3 status post L3-S1 fusion with Dr. Feliciano. His pain control is much better today. Still has a Peck in place as he was not very mobile yesterday and only made it to his chair in his room. Patient is very motivated today. He would like to discharge home instead of SNF. Family is getting their house set up today for his care at home. Denies any chest pain, shortness of breath, or nausea. Exam Vital Signs (past 8 hours): Vital Signs - 8 hr 3 12/25/17 03:39 Temperature 98.0 F Pulse Rate 82 Respiratory Rate 16 Blood Pressure 129/85 H Pulse Oximetry 96 Pulse Oximetry 96 Oxygen Delivery Method Room Air Oxygen Flow Rate 0 Narrative Exam Narrative: Patient lying in bed in no acute distress. He is alert and oriented x3. Sensation intact to light touch throughout bilateral lower extremities. He is able to actively dorsiflex and plantar flex. Calves are soft, compressible, and nontender bilaterally. Objective Labs Result Diagrams: 12/23/17 05:30 Assessment & Plan Post-op (1) S/P lumbar fusion: Current Visit: Yes Status: Acute (2) Prostate cancer: Current Visit: Yes Status: Acute (3) History of VT (myocardial infarction): Current Visit: Yes Status: Acute Postoperative Procedures Operation Date: 12/22/17 07:45 Actual Procedures Side Surgeon p L3-4, L4-5, L5-S1 Translaminar Interbody Fusion with Posterior Instru Jas Feliciano MD POD #3 status post L3-S1 fusion with Dr[address] Feliciano. Continue current pain management. Patient will need meds for home. DC Peck today as he is more mobile than he has been. Plan will be to work with physical therapy today with a goal to ambulating in the [place]. Discharge likely tomorrow once mobilizing safely, and adequate pain control. Time Spent With Patient less than 15 minutes Quality VTE Deep Vein Thrombosis/Pulmonary Embolism Present on Admission: No
--- NOTE | 2017-12-25 11:17 | PT.IPTN ---
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/17) Spinal stenosis, lumbar region with neurogenic claudication (12/22/17) Arthrodesis status (12/22/17) Surgery Performed Operation Date: 12/22/17 07:45 Actual Procedures p L3-4, L4-5, L5-S1 Translaminar Interbody Fusion with Posterior Gilberto Feliciano MD Physical Therapy Treatment Note M2 PT-IP Current Condition Start: 12/23/17 12:03 Freq: NEEDED Status: Active Protocol: Document 12/23/17 12:05 AB (Rec: 12/23/17 12:23 AB [id number]) Physical Therapy Current Condition Current Condition Evaluation Date 12/23/17 Treatment Diagnosis s/p L3-4, L4-5, L5S1 fusion and discectomy Onset Date 12/22/17 Precautions Lumbar Precautions Log Roll No Twisting Limit Bending Lifting Restriction of 10 lbs Gait Belt above Incisional Area M3 PT-IP Subjective Start: 12/23/17 12:03 Freq: NEEDED Status: Active Protocol: Document 12/25/17 09:45 GGD (Rec: 12/25/17 11:17 GGD [id number]) Subjective Physical Therapy Visit Type Type Treatment Note Visit Start Time 09:15 Visit Stop Time 09:45 Total Visit Minutes 30 Number of DESKTOP MANAGER Visits 1 Physical Therapy Visit Comments Patient Comments Pt ready to get up. Therapy Pain Assessment Pain When Pain Assessed At Rest Pain Present Pain Present Pain Reported Location Lower Back Intensity 2 Scale Used Numeric (1 - 10) M4 PT-IP Mobility and Gait Start: 12/23/17 12:03 Freq: NEEDED Status: Active Protocol: Document 12/25/17 09:45 GGD (Rec: 12/25/17 11:17 GGD [id number]) PT-Bed Mobility Assessment Rolling Type of Rolling Log Rolling Level of Assist Minimal Assistance 1 Person Assistance Supine to Sit Supine to Sit Minimal Assistance 1 Person Assistance Bedrails Scooting Scooting to Edge of Bed Contact Guard Assistance PT-Transfer Assessment Sit to and From Stand Sit to and from Stand Moderate Assistance 2 Person Assistance Use of Upper Extremities Equipment Transfer Assistive Device Gait Belt Front Wheeled Walker Orthotic/Prosthetic Devices or Brace: No Transfers Transfer Destination Chair Transfer Ability Level of Assist Minimal Assistance 1 Person Assistance Use of Upper Extremities Gait Assessment Gait Gait Assistance Required: Minimum Assistance 1 Person Assist Distance (Feet) (feet) 10 Factors Limiting Gait Function Factors Limiting Gait Function Decreased Activity Tolerance Decreased Strength Difficulty Following Directions Pain Poor Balance Poor Safety Awareness Comments Gait Comments Pt able to do small knee bends standing in FWW. Pt had knee buckle once during gait. He stood at sink x 5 min for self care and dressing change. RLE 3+/5 M7 PT-IP Assessment and Plan Start: 12/23/17 12:03 Freq: NEEDED Status: Active Protocol: Document 12/25/17 09:45 GGD (Rec: 12/25/17 11:17 GGD [id number]) PT Summary Assessment and Plan Summary Progress Towards Goals Progressing Toward Goals Slow Progress due to Pain Assessment Summary Pt need less assist with mobility. He was able to progress to short distance gait. Frequency of Treatment Frequency Of Treatment Twice a Day Treatment Plan Other Recommendations and Next Treatment Gait, bed mobilty and stairs Focus before D/C Recommendations To Nursing Amount of Assist Needed 2 Person Assist Discharge Recommendations PT Discharge Recommendations Home with Assistance Home Health SNF Rehab Equipment Needed for Home Before FWW Discharge
--- NOTE | 2017-12-25 11:58 | PC.NURSE ---
DC'ed Peck catheter at 1110; pt tolerated well. Educated him on voiding within 4 hours, and he agreed to try to void in 2 hours. Tolerating ambulated well; went from a 2PA yesterday to a 1PA this morning. Plan is to DC home tomorrow. Pain reported at a 6 this morning, and currently reports a 1 out of 10 pain and sitting up in the chair.
[2017-12-25 12:30] VITALS: BP 120/66; PULSE 88; RESP 18; TEMP 36.7; O2SAT 97
--- NOTE | 2017-12-25 12:58 | OT.IP.TRT ---
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/17) Spinal stenosis, lumbar region with neurogenic claudication (12/22/17) Arthrodesis status (12/22/17) Surgery Performed Operation Date: 12/22/17 07:45 Actual Procedures p L3-4, L4-5, L5-S1 Translaminar Interbody Fusion with Posterior Gilberto Feliciano MD Occupational Therapy Treatment Note M2 OT-IP Current Condition Start: 12/23/17 12:10 Freq: Status: Active Protocol: Document 12/25/17 09:15 ADH (Rec: 12/25/17 12:58 ADH [id number]) Occupational Therapy Current Condition Current Condition Evaluation Date 12/23/17 Treatment Diagnosis Spinal stenosis Post Operative Precautions Lumbar Precautions Log Roll No Twisting Limit Bending Lifting Restriction of 10 lbs Gait Belt above Incisional Area M3 OT- IP Subjective and Pain Start: 12/23/17 12:10 Freq: Status: Active Protocol: Document 12/25/17 09:15 ADH (Rec: 12/25/17 12:58 ADH [id number]) OT- Subjective Occupational Therapy Visit Type Type Treatment Note Visit Start Time 09:15 Visit Stop Time 09:45 Total Visit Minutes 30 Notes Pt agreeable to OT services, premedicated, family present. OT Pain Assessment Pain When Pain Assessed At Rest Pain Present Pain Present Pain Reported Location Lower Back Intensity 2 Scale Used Numeric (1 - 10) Management Techniques Distraction Re-positioning Timing of Activity with Medications M4 OT- IP ADL's Start: 12/23/17 12:10 Freq: Status: Active Protocol: Document 12/25/17 09:15 ADH (Rec: 12/25/17 12:58 ADH [id number]) OT ADL-Oral Care General Eval Oral Care Ability Standby Assistance Contact Guard Assistance Comments Oral Care Comments Pt stood at sink for 4 minutes for oral care, with CGA. Pt stood for additional 2 minutes while nursing changed his bandage. OT ADL-Dressing General Eval Lower Body Dressing Ability Minimal Assistance Areas Needing Assistance Socks Comments OT Dressing Comments Pt needing A to don/doff socks 2' to back precautions OT ADL-Toileting Comments OT Toileting Comments dependent-catheter M6 OT- IP Functional Cognition Start: 12/23/17 12:10 Freq: Status: Active Protocol: Document 12/25/17 09:15 ADH (Rec: 12/25/17 12:58 ADH [id number]) Cognitive Factors Limiting Selfcare Function Cognitive Ability Level of Alertness Alert Attention Span Ability Capable of Focused Attention Capable of Sustained Attention Ability to Follow Commands Able to Follow One Step Commands M7 OT- IP Mobility and Balance Start: 12/23/17 12:10 Freq: Status: Active Protocol: Document 12/25/17 09:15 ADH (Rec: 12/25/17 12:58 ADH [id number]) OT- Bed Mobility Assessment Rolling Level of Assistance Contact Guard Assistance Supine to Sit Supine to Sit Assist Minimal Assistance Scooting Scooting to Edge of Bed Contact Guard Assistance OT-Transfer Assessment Sit to and From Stand Sit to and from Stand Minimal Assistance Moderate Assistance Technique Transfer Destination Chair Transfer Technique Stand Step Pivot Devices Transfer Assistive Devices Gait Belt Front Wheeled Walker OT- Gait Assessment Gait Gait Assistance Required: Contact Guard Assist Distance (Feet) (feet) 20 Assistive Devices Assistive Device Gait Belt Front Wheeled Walker M8 OT- IP Objective Assessments Start: 12/23/17 12:10 Freq: Status: Active Protocol: Document 12/23/17 09:55 CCC (Rec: 12/23/17 12:29 CCC [id number]) OT Strength Comments Strength Comments WFL for BUE 5/5. M9 OT- IP Assessment and Plan Start: 12/23/17 12:10 Freq: Status: Active Protocol: Document 12/25/17 09:15 ADH (Rec: 12/25/17 12:58 ADH [id number]) OT Summary Assessment and Plan Potential Rehabilitation Potential Good Analytic Complexity at Evaluation Low Summary Progress Towards Goals Progressing Toward Goals Slow Progress due to Pain Assessment Summary Pt with significantly improved functional mobility and strength over previous sessions. Based on this morning session, if pt continues to progress well, he is appropriate to d/c home with family support. If pt is not able to maintain progress, he will likely need SNF level care. Family aware of needed DME and plans to source before d/c. Goals Dressing Goal Standby Assistance Toileting Goal Independent Toilet Transfer Goal Standby Assistance Frequency of Treatment Frequency Of Treatment Once a Day Treatment Plan OT Treatment Plan ADL Training Patient/Family Education Discharge Planning Discharge Recommendations OT Discharge Recommendations Home with Assistance
--- NOTE | 2017-12-25 13:51 | PT.IPTN ---
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/17) Spinal stenosis, lumbar region with neurogenic claudication (12/22/17) Arthrodesis status (12/22/17) Surgery Performed Operation Date: 12/22/17 07:45 Actual Procedures p L3-4, L4-5, L5-S1 Translaminar Interbody Fusion with Posterior Gilberto Feliciano MD Physical Therapy Treatment Note M2 PT-IP Current Condition Start: 12/23/17 12:03 Freq: NEEDED Status: Active Protocol: Document 12/23/17 12:05 AB (Rec: 12/23/17 12:23 AB [id number]) Physical Therapy Current Condition Current Condition Evaluation Date 12/23/17 Treatment Diagnosis s/p L3-4, L4-5, L5S1 fusion and discectomy Onset Date 12/22/17 Precautions Lumbar Precautions Log Roll No Twisting Limit Bending Lifting Restriction of 10 lbs Gait Belt above Incisional Area M3 PT-IP Subjective Start: 12/23/17 12:03 Freq: NEEDED Status: Active Protocol: Document 12/25/17 13:44 GGD (Rec: 12/25/17 13:51 GGD [id number]) Subjective Physical Therapy Visit Type Type Treatment Note Visit Start Time 13:10 Visit Stop Time 13:40 Total Visit Minutes 30 Number of WEEKEND ANCHOR Visits 1 Physical Therapy Visit Comments Patient Comments Pt would like to go back to bed. Therapy Pain Assessment Pain When Pain Assessed At Rest Pain Present Pain Present Pain Reported Location Lower Back Intensity 4 Scale Used Numeric (1 - 10) M4 PT-IP Mobility and Gait Start: 12/23/17 12:03 Freq: NEEDED Status: Active Protocol: Document 12/25/17 13:44 GGD (Rec: 12/25/17 13:51 GGD [id number]) PT-Bed Mobility Assessment Sit to Supine Sit to Supine Minimal Assistance 1 Person Assistance Scooting Scooting to Edge of Bed Contact Guard Assistance Scooting Up and Down in Bed Moderate Assistance PT-Transfer Assessment Sit to and From Stand Sit to and from Stand Minimal Assistance Moderate Assistance 1 Person Assistance Use of Upper Extremities Equipment Transfer Assistive Device Gait Belt Front Wheeled Walker Orthotic/Prosthetic Devices or Brace: No Transfers Transfer Destination Bed Transfer Ability Level of Assist Minimal Assistance 1 Person Assistance Use of Upper Extremities Comments Mobility Comments Pt sit to stand from Chair with min A and wheel chair with Mod A. Gait Assessment Gait Gait Assistance Required: Minimum Assistance 1 Person Assist Distance (Feet) (feet) 35 Assistive Devices Assistive Device Gait Belt Front Wheeled Walker Orthotic/Prosthetic Devices or Brace: No Factors Limiting Gait Function Factors Limiting Gait Function Decreased Activity Tolerance Decreased Strength Difficulty Following Directions Pain Poor Balance Poor Safety Awareness Comments Gait Comments pt ambulated 20 feet then seat , and then abmulated 15 feet. He did have knee buckling with sit to stand, but not during gait. M5 PT-IP Objective Assessments Start: 12/23/17 12:03 Freq: NEEDED Status: Active Protocol: Document 12/23/17 12:05 AB (Rec: 12/23/17 12:23 AB [id number]) Orientation Orientation/Cognition Level of Alertness Alert Orientation Name Place Situation Safety Awareness Understands Safety Issues Strength Lower Extremity Strength Assessment Bilaterally Impaired Comments Strength Comments LLE: 3-/5 RLE 3+/5 M6 PT-IP Treatment Start: 12/23/17 12:03 Freq: NEEDED Status: Active Protocol: Document 12/24/17 11:58 AB (Rec: 12/24/17 12:06 AB [id number]) Physical Therapy Treatment Exercises Exercises Heel Slides Short Arc Quads Education Education Provided Precautions Weight Bearing Status Post-Op Packet Safety M7 PT-IP Assessment and Plan Start: 12/23/17 12:03 Freq: NEEDED Status: Active Protocol: Document 12/25/17 13:44 GGD (Rec: 12/25/17 13:51 GGD [id number]) PT Summary Assessment and Plan Summary Progress Towards Goals Progressing Toward Goals Slow Progress due to Pain Assessment Summary Pt was able to progress gait. He had knee buckling wiht sit to stand. He fatigued quickly. Frequency of Treatment Frequency Of Treatment Twice a Day Treatment Plan Other Recommendations and Next Treatment Gait, bed mobilty, rn critical care Focus training in AM and stairs before D/C Recommendations To Nursing Amount of Assist Needed 2 Person Assist Discharge Recommendations PT Discharge Recommendations Home with Assistance Home Health SNF Rehab Equipment Needed for Home Before FWW Discharge
[2017-12-25 15:15] VITALS: BP 132/79; PULSE 101; RESP 18; TEMP 36.7; O2SAT 97
--- NOTE | 2017-12-25 15:23 | CM.DPC ---
DCP Cont: Met w/pt, his son, and spouse Eliana this morning at bedside. Pt says he is feeling a lot better and a lot stronger, worked w/PT this morning and everyone in the rm felt more confident that, if pt is able to continue progression today and tomorrow morning, he could DC home w/assist from family and HH ? PT recommendation continues to be SNF vs Home w/HH and assist depending on pt's progression. Pt and family did not want this TILE MOLDER HAND to start SNF process. TC from [facility] today; they would need to review, although pt would likely be accepted based on their conversation w/pt's Eliana. Following closely for coordination of safe DCP. DEANA Melendez
[2017-12-25 19:32] VITALS: BP 137/69; PULSE 95; RESP 17; TEMP 36.8; O2SAT 96
[2017-12-25] MEDS: SENNOSIDES 8.6 MG TABLET 17.2 MG PO (20:31)
[2017-12-25] MEDS: MAGNESIUM HYDROXIDE 30 ML UDC PO (20:32)
--- NOTE | 2017-12-25 21:37 | PC.NURSE ---
Received pt with last documented BM on 12/21. abdomne soft and round. pt reports positive flatus, denies constipation discomfort. agreeable to try prune juice and take PRN MOM. pt also complaining of dribbling with urination which is not normal for him. pt with history of prostate CA and had peterson removed during the day shift. pt encouraged to do kegel exercises.
[2017-12-25 23:30] VITALS: BP 136/66; PULSE 84; RESP 17; TEMP 36.8; O2SAT 96
[2017-12-26] MEDS: DEXAMETHASONE 4 MG TABLET PO ×2 (00:14→05:47)
[2017-12-26] MEDS: OXYCODONE IR 5 MG TABLET 15 MG PO ×3 (00:14→09:35)
[2017-12-26 00:23] VITALS: O2SAT 96
[2017-12-26 02:54] VITALS: BP 144/81; PULSE 83; RESP 16; TEMP 36.7; O2SAT 97
[2017-12-26 09:33] VITALS: BP 150/81
[2017-12-26] MEDS: LISINOPRIL 10 MG TABLET PO (09:33)
[2017-12-26] MEDS: PANTOPRAZOLE 20 MG TABLET PO (09:33)
[2017-12-26] MEDS: DOCUSATE 100 MG CAPSULE PO (09:33)
[2017-12-26] MEDS: TAMSULOSIN 0.4 MG CAPSULE PO (09:33)
[2017-12-26] MEDS: ASPIRIN EC 81 MG TABLET PO (09:33)
[2017-12-26] MEDS: GABAPENTIN 600 MG TABLET PO (09:33)
--- NOTE | 2017-12-26 09:49 | PT.IPTN ---
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/17) Spinal stenosis, lumbar region with neurogenic claudication (12/22/17) Arthrodesis status (12/22/17) Surgery Performed Operation Date: 12/22/17 07:45 Actual Procedures p L3-4, L4-5, L5-S1 Translaminar Interbody Fusion with Posterior Gilberto Feliciano MD Physical Therapy Treatment Note M2 PT-IP Current Condition Start: 12/23/17 12:03 Freq: NEEDED Status: Active Protocol: Document 12/23/17 12:05 AB (Rec: 12/23/17 12:23 AB [id number]) Physical Therapy Current Condition Current Condition Evaluation Date 12/23/17 Treatment Diagnosis s/p L3-4, L4-5, L5S1 fusion and discectomy Onset Date 12/22/17 Precautions Lumbar Precautions Log Roll No Twisting Limit Bending Lifting Restriction of 10 lbs Gait Belt above Incisional Area M3 PT-IP Subjective Start: 12/23/17 12:03 Freq: NEEDED Status: Active Protocol: Document 12/26/17 09:39 [facility] (Rec: 12/26/17 09:49 [facility] [id number]) Subjective Physical Therapy Visit Type Type Treatment Note Visit Start Time 09:00 Visit Stop Time 09:35 Total Visit Minutes 35 Number of DATA WAREHOUSING ARCHITECT Visits 0 Physical Therapy Visit Comments Patient Comments Andrey reports his pain is 2/10 he is ready to get up and walk . Therapy Pain Assessment Pain When Pain Assessed At Rest Pain Present Pain Present Pain Reported Location Lower Back Intensity 2 Scale Used Numeric (1 - 10) M4 PT-IP Mobility and Gait Start: 12/23/17 12:03 Freq: NEEDED Status: Active Protocol: Document 12/26/17 09:39 [facility] (Rec: 12/26/17 09:49 [facility] [id number]) PT-Bed Mobility Assessment Rolling Type of Rolling Log Rolling Level of Assist Independent Supine to Sit Supine to Sit Standby Assistance Bedrails Sit to Supine Sit to Supine Contact Guard Assistance Scooting Scooting to Edge of Bed Contact Guard Assistance Scooting Up and Down in Bed Contact Guard Assistance PT-Transfer Assessment Sit to and From Stand Sit to and from Stand Contact Guard Assistance Use of Upper Extremities Equipment Transfer Assistive Device Gait Belt Front Wheeled Walker Orthotic/Prosthetic Devices or Brace: No Transfers Transfer Destination Bed Transfer Ability Level of Assist Contact Guard Assistance Use of Upper Extremities Comments Mobility Comments pt sit-stand with fww and CGA Gait Assessment Gait Gait Assistance Required: Contact Guard Assist Distance (Feet) (feet) 120 Able to Maintain Weight Bearing Status Yes During Gait Assistive Devices Assistive Device Gait Belt Front Wheeled Walker Orthotic/Prosthetic Devices or Brace: No Factors Limiting Gait Function Factors Limiting Gait Function Decreased Activity Tolerance Pain Comments Gait Comments good increase in gait this AM as he walked over 120 feet to stair case and back. Knee buckled one time but he was able to stabilize himself with the walker Stair Climbing Assessment Evaluation Level of Assist On Stairs Minimal Assistance Devices Stair Climbing Assistive Devices Left Railing Right Railing Technique/Endurance Stair Climbing Direction Ascend and Descend Stair Climbing Technique Step to Step Number of Steps Climbed 1 Query Text: Comments Stair Climbing Comments The patient and his state no stairs going into his house or on house. He has a small step into the shower only. He was able to do one step up and down today PT-Balance Assessment Sitting Balance and Reactions Static Sitting Balance Ability Normal Dynamic Sitting Balance Ability Normal M5 PT-IP Objective Assessments Start: 12/23/17 12:03 Freq: NEEDED Status: Active Protocol: Document 12/23/17 12:05 AB (Rec: 12/23/17 12:23 AB [id number]) Orientation Orientation/Cognition Level of Alertness Alert Orientation Name Place Situation Safety Awareness Understands Safety Issues Strength Lower Extremity Strength Assessment Bilaterally Impaired Comments Strength Comments LLE: 3-/5 RLE 3+/5 M6 PT-IP Treatment Start: 12/23/17 12:03 Freq: NEEDED Status: Active Protocol: Document 12/26/17 09:39 [facility] (Rec: 12/26/17 09:49 [facility] [id number]) Physical Therapy Treatment Exercises Exercises Ankle Pumps Gluteal Sets Quad Sets Heel Slides Straight Leg Raises Education Education Provided Safety M7 PT-IP Assessment and Plan Start: 12/23/17 12:03 Freq: NEEDED Status: Active Protocol: Document 12/26/17 09:39 [facility] (Rec: 12/26/17 09:49 [facility] [id number]) PT Summary Assessment and Plan Potential Rehabilitation Potential Good Summary Progress Towards Goals Safe For Discharge Goals Met Assessment Summary Andrey has shown great progress and met all PT goals for mobility. He will be discharged home with his today Discharge Recommendations PT Discharge Recommendations Home Home with Assistance Equipment Needed for Home Before the patient has a fww for home Discharge
--- NOTE | 2017-12-26 12:53 | CM.DPNOTE ---
DCP/continued: Reviewed chart. Patient cleared by therapy and Orthopedic team to d/c home today. Spoke with RN/Raquel and she confirms that patient and spouse very aware and agreeable to d/c home. FITNESS CENTRE MANAGER attempted to meet with patient this AM but he had already left. P: Home today. Verbal consent given from patient this AM regarding Important Message from Medicare. DEANA Wallace
--- NOTE | 2018-01-10 11:35 | PM.DS.1 ---
History of Present Illness Chief complaint: [id number] Discharge Providers Date of admission: 12/22/17 06:55 Consults: 12/22/17 14:26 Consult to Occupational Therapy Evaluate & Treat Comment: Physician Instructions: Evaluate and treat Consult to Physical Therapy Evaluate & Treat Comment: Physician Instructions: Evaluate and Treat Discharge provider: Trell Gil PA-C Summary Discharge Diagnosis: Status post L3-L4, L4-L5, L5-S1 posterolateral and posterior interbody fusion, L2-L3, L4-L5, L5-S1 interbody cage placement, L3-L4, L4-L5, L5-S1 decompressive laminectomy with bilateral facetectomies, L3-L4, L4-L5, L5-S1 posterior segmental instrumentation Hospital Course: Procedure & Clinicians Procedure: 1. L3-4, L4-5, L5-S1 Postero-lateral and posterior interbody fusion 2. L3-4, L4-5, L5-S1 interbody cage placement. 3. L3-4, L4-5, L5-S1 decompressive laminectomy with bilateral facetecomies 4. L3-4, L4-5, L5-S1 Posterior segmental instrumentation 5. [place] of bone marrow from iliac crest 6. Utilization of microsurgical technique and operating microscope l Same procedure as scheduled: Yes Indications: Patient has been having chronic back pain and worsening lumbar radiculopathy. Patient failed multiple conservative management with worsening pain weakness and numbness in her lower extremity. Patient has been having difficulty performing activity of daily living. After discussing risks benefits of treatment options, patient elected proceed with surgery. Surgeon: Jas Feliciano Hop Separator: Erika Tan Click Yes if Unassisted: No Anesthesia Type: General Operative Notes Closure Type: primary Specimen(s): none sent Applied: catheter Estimated Blood Loss (mL): 200 Blood products transfused: none Procedure in detail: Patient was seen in the preoperative area. Risks and benefits of the surgery was discussed with the patient. Informed consent was obtained from the patient and placed in the chart. Surgical site was marked. Patient was taken to the operative room. General anesthesia was administered. Prophylactic antibiotic was given to the patient less than 30 min before the incision was made. Patient was placed into a prone position on the Connor table. Patient's back was then prepped and draped in the sterile fashion. Time-out was performed at this time. Status at Discharge Overall status at discharge: other (Stable status post lumbar fusion) Exam Vital Signs (past 8 hours): Pulse Oximetry 97 Oxygen Delivery Method Room Air Oxygen Flow Rate 0 Objective Labs Result Diagrams: 12/23/17 05:30 Discharge Plan Discharge Plan Patient Disposition: Home, Self-Care Discharge comment: DC home Wednesday with cover site dressing Discharge Med Rec/Prescriptions Prescriptions: New acetaminophen 325 mg Tablet 325 mg PO Q4H PRN (Reason: Pain, Mild) Qty: 0 RF: 0 docusate sodium 100 mg Capsule 100 mg PO BID Qty: 0 RF: 0 hydroxyzine pamoate 25 mg Capsule 25 mg PO Q4HR PRN (Reason: spasms) Qty: 60 RF: 0 oxycodone 5 mg Tablet 5 mg PO Q4HR PRN (Reason: pain (scale score 7-10)) Qty: 90 RF: 0 Continue lisinopril 20 mg Tablet 10 mg PO QAM RF: 0 aspirin [Aspir-81] 81 mg Tablet,Delayed Release (Dr/Ec) 81 mg PO DAILY RF: 0 tamsulosin 0.4 mg Capsule,Extended Release 24hr 0.4 mg PO QAM RF: 0 gabapentin 300 mg Capsule 600 mg PO TID RF: 0 omeprazole 20 mg Capsule,Delayed Release(Dr/Ec) 20 mg PO QAM RF: 0 Follow up/Referrals: Jas Feliciano MD [Physician] - (Please follow up in 10-14 days with PA-C) Provider Discharge Instructions Activity: No excessive bending, lifting, or twisting Visit Report/Discharge Packet Instructions: DI for Transforaminal Lumbar Interbody Fusion Visit Report Forms: Stroke Signs & Symptoms Discharge Data Attending Provider: Jas Feliciano Admit Date/Time: 12/22/17 06:55 Discharges patient from system. Discharge Date/Time: 12/26/17 11:31 Quality VTE Deep Vein Thrombosis/Pulmonary Embolism Present on Admission: No
--- NOTE | 2018-01-10 11:42 | P.DS_ITS ---
History of Present Illness Chief complaint: [id number] Discharge Providers Date of admission: 12/22/17 06:55 Consults: 12/22/17 14:26 Consult to Occupational Therapy Evaluate & Treat Comment: Physician Instructions: Evaluate and treat Consult to Physical Therapy Evaluate & Treat Comment: Physician Instructions: Evaluate and Treat Discharge provider: Trell Gil PA-C Summary Discharge Diagnosis: Status post L3-L4, L4-L5, L5-S1 posterolateral and posterior interbody fusion, L2-L3, L4-L5, L5-S1 interbody cage placement, L3-L4 , L4-L5, L5-S1 decompressive laminectomy with bilateral facetectomies, L3-L4, L4 -L5, L5-S1 posterior segmental instrumentation Hospital Course: Procedure & Clinicians Procedure: 1. L3-4, L4-5, L5-S1 Postero-lateral and posterior interbody fusion 2. L3-4, L4-5, L5-S1 interbody cage placement. 3. L3-4, L4-5, L5-S1 decompressive laminectomy with bilateral facetecomies 4. L3-4, L4-5, L5-S1 Posterior segmental instrumentation 5. [place] of bone marrow from iliac crest 6. Utilization of microsurgical technique and operating microscope l Same procedure as scheduled: Yes Indications: Patient has been having chronic back pain and worsening lumbar radiculopathy. Patient failed multiple conservative management with worsening pain weakness and numbness in her lower extremity. Patient has been having difficulty performing activity of daily living. After discussing risks benefits of treatment options, patient elected proceed with surgery. Surgeon: Jas Feliciano Baling Machine Tender: Erika Tan Click Yes if Unassisted: No Anesthesia Type: General Operative Notes Closure Type: primary Specimen(s): none sent Applied: catheter Estimated Blood Loss (mL): 200 Blood products transfused: none Procedure in detail: Patient was seen in the preoperative area. Risks and benefits of the surgery was discussed with the patient. Informed consent was obtained from the patient and placed in the chart. Surgical site was marked. Patient was taken to the operative room. General anesthesia was administered. Prophylactic antibiotic was given to the patient less than 30 min before the incision was made. Patient was placed into a prone position on the Connor table. Patient's back was then prepped and draped in the sterile fashion. Time- out was performed at this time. Status at Discharge Overall status at discharge: other (Stable status post lumbar fusion) Exam Vital Signs (past 8 hours): Pulse Oximetry 97 Oxygen Delivery Method Room Air Oxygen Flow Rate 0 Objective Labs Result Diagrams: 12/23/17 05:30 Discharge Plan Discharge Plan Patient Disposition: Home, Self-Care Discharge comment: DC home Wednesday with cover site dressing Discharge Med Rec/Prescriptions Prescriptions: New acetaminophen 325 mg Tablet 325 mg PO Q4H PRN (Reason: Pain, Mild) Qty: 0 RF: 0 docusate sodium 100 mg Capsule 100 mg PO BID Qty: 0 RF: 0 hydroxyzine pamoate 25 mg Capsule 25 mg PO Q4HR PRN (Reason: spasms) Qty: 60 RF: 0 oxycodone 5 mg Tablet 5 mg PO Q4HR PRN (Reason: pain (scale score 7-10)) Qty: 90 RF: 0 Continue lisinopril 20 mg Tablet 10 mg PO QAM RF: 0 aspirin [Aspir-81] 81 mg Tablet,Delayed Release (Dr/Ec) 81 mg PO DAILY RF: 0 tamsulosin 0.4 mg Capsule,Extended Release 24hr 0.4 mg PO QAM RF: 0 gabapentin 300 mg Capsule 600 mg PO TID RF: 0 omeprazole 20 mg Capsule,Delayed Release(Dr/Ec) 20 mg PO QAM RF: 0 Follow up/Referrals: Jas Feliciano MD [Physician] - (Please follow up in 10-14 days with PA-C) Provider Discharge Instructions Activity: No excessive bending, lifting, or twisting Visit Report/Discharge Packet Instructions: DI for Transforaminal Lumbar Interbody Fusion Visit Report Forms: Stroke Signs & Symptoms Discharge Data Attending Provider: Jas Feliciano Admit Date/Time: 12/22/17 06:55 Discharges patient from system. Discharge Date/Time: 12/26/17 11:31 Quality VTE Deep Vein Thrombosis/Pulmonary Embolism Present on Admission: No
== END 2017-12-26 11:31 | disposition home or self-care (01) | DRG 455 ==
PROVIDERS: Admitting Provider Orthopaedic Surgery Orthopaedic Surgery of the Spine; Visit Provider Orthopaedic Surgery Orthopaedic Surgery of the Spine
PROC: 0SG10AJ Fusion of 2 or more Lumbar Vertebral Joints with Interbody Fusion Device, Posterior Approach, Anterior Column, Open Approach (ICD-10-PCS; principal; 2017-12-22 07:45)
DX: M48.062 Spinal stenosis, lumbar region with neurogenic claudication (principal); M43.16 Spondylolisthesis, lumbar region; M47.26 Other spondylosis with radiculopathy, lumbar region; Z95.1 Presence of aortocoronary bypass graft; I25.10 Atherosclerotic heart disease of native coronary artery without angina pectoris; E78.5 Hyperlipidemia, unspecified; I10 Essential (primary) hypertension; M48.07 Spinal stenosis, lumbosacral region; M43.17 Spondylolisthesis, lumbosacral region; M47.27 Other spondylosis with radiculopathy, lumbosacral region; Z85.46 Personal history of malignant neoplasm of prostate
CPT/HCPCS: 36415; 72100; 76001; 85014; 85018; 94760; 97110; 97116; 97162; 97166; 97530; 97535; C1776; C9290; J0330; J0690; J1100; J1170; J2250; J2405; J2704; J3010